=== PATIENT | female | born 1990 | race Caucasian/White ===

== ENCOUNTER 2017-01-13 10:30 | Observation (INO) | payer BC ==
[~2017-01-13] VITALS: Ht 157.5 cm; Wt 82.6 kg
[~2017-01-13 10:30] MED LIST: HYDR-4100 PO; PARO20TA51 PO
[2017-01-13] MEDS ORDERED: TERBUTALINE SULFATE 1 MG/ML VIAL SUBCUT PRN (11:15)
[2017-01-13 11:53] LABS: BILIRUBIN,URINE NEGATIVE (NEGATIVE); BLOOD, URINE 2+ (NEGATIVE); CLARITY/URINE SL HAZY (CLEAR); COLOR,URINE YELLOW (YELLOW); GLUCOSE,URINE NEGATIVE (NEGATIVE); KETONES,URINE NEGATIVE (NEGATIVE); LEUKOCYTE ESTERASE ,URINE NEGATIVE (NEGATIVE); NITRITE, URINE NEGATIVE (NEGATIVE); PH,URINE 7.5 (5.0-8.0); PROTEIN URINE NEGATIVE (NEGATIVE); UROBILINOGEN,URINE 0.2 (0.2-1.0)
[2017-01-13 12:09] LABS: BACTERIA,URINE RARE /HPF (None Seen); MUCUS,URINE 1+ /LPF (None Seen); WBC,URINE 0-3 /HPF (0-3)
== END 2017-01-13 12:55 | disposition home or self-care (01) ==
LOC: SPU 10:30 → UNDOADMIN 10:39 → SPU 10:39 → EDSTATUS 12:30
PROVIDERS: ADMIT Specialist; ATTEND Specialist
DX: O26.853 Spotting complicating pregnancy, third trimester (principal); Z3A.38 38 weeks gestation of pregnancy
CPT/HCPCS: 81000; G0378; J3105

== ENCOUNTER 2017-01-14 19:25 | Observation (INO) | payer BC ==
[~2017-01-14] VITALS: Ht 152.4 cm; Wt 82.6 kg
[2017-01-14] MEDS ORDERED: TERBUTALINE SULFATE 1 MG/ML VIAL ONE (20:38)
== END 2017-01-14 22:19 | disposition home health service, planned readmission (86) ==
LOC: SPU 19:25
PROVIDERS: ADMIT Obstetrics & Gynecology; ATTEND Obstetrics & Gynecology
DX: O42.92 Full-term premature rupture of membranes, unspecified as to length of time between rupture and onset of labor (principal); O46.93 Antepartum hemorrhage, unspecified, third trimester; Z3A.38 38 weeks gestation of pregnancy
CPT/HCPCS: G0378; J3105

== ENCOUNTER 2017-01-15 09:40 | Observation (INO) | payer BC | END 2017-01-15 11:20 | disposition home or self-care (01) | LOC: SPU 09:40 | PROVIDERS: ADMIT Specialist; ATTEND Specialist | DX: O42.92 Full-term premature rupture of membranes, unspecified as to length of time between rupture and onset of labor (principal); Z3A.38 38 weeks gestation of pregnancy | CPT/HCPCS: 76815; G0378; 81002-TC ==

== ENCOUNTER 2017-01-16 03:48 | Inpatient (IN) | payer BC ==
[~2017-01-16] VITALS: Ht 152.4 cm; Wt 82.6 kg
[2017-01-16] MEDS ORDERED: LR 1,000 ML IV SCH (04:00)
[2017-01-16] MEDS ORDERED: CEFAZOLIN 2 GM IVPB PREMIX 50 ML IV ONE (04:00)
[2017-01-16 04:47] LABS: BILIRUBIN,URINE NEGATIVE (NEGATIVE); BLOOD, URINE 3+ (NEGATIVE); CLARITY/URINE SL CLOUDY (CLEAR); COLOR,URINE YELLOW (YELLOW); GLUCOSE,URINE NEGATIVE (NEGATIVE); KETONES,URINE NEGATIVE (NEGATIVE); LEUKOCYTE ESTERASE ,URINE NEGATIVE (NEGATIVE); NITRITE, URINE NEGATIVE (NEGATIVE); PROTEIN URINE NEGATIVE (NEGATIVE); UROBILINOGEN,URINE 0.2 (0.2-1.0)
[2017-01-16 04:51] VITALS: BP_SYST 92
[2017-01-16 04:54] LABS: BACTERIA,URINE FEW /HPF (None Seen); RBC,URINE 20-50 /HPF (0-3); WBC,URINE 0-3 /HPF (0-3)
[2017-01-16 04:56] LABS: BASOPHILS # (AUTO) 0.1 K/uL (0.0-0.2); BASOPHILS % (AUTO) 0.9 % (0.0-2.0); EOSINOPHILS # (AUTO) 0.3 K/uL (0.0-0.4); EOSINOPHILS % (AUTO) 2.9 % (0.0-4.0); HEMATOCRIT 36.3 % (36-48); HEMOGLOBIN 12.1 g/dL (12.0-16.0); LYMPHOCYTES % (AUTO) 20.7 % (20.5-51.5); MEAN CORPUSCULAR HEMOGLOBIN 29 pg (27-31); MEAN CORPUSCULAR HGB CONC 33 % (32-36); MEAN CORPUSCULAR VOLUME 86 fL (79.0-98.0); MONOCYTES # (AUTO) 0.5 K/uL (0.0-1.0); MONOCYTES % (AUTO) 4.9 % (1.7-9.3); NEUTROPHILS # (AUTO) 6.6 K/uL (1.8-7.7); NEUTROPHILS % (AUTO) 70.6 % (40.0-70.0); PLATELET COUNT (AUTO) 138 K/uL (130-430); RED BLOOD CELL COUNT(AUTO) 4.22 MIL/uL (4.2-6.2); RED CELL DISTRIBUTION WIDTH 14.3 % (9.0-15.0); WHITE BLOOD COUNT (AUTO) 9.5 K/uL (4.8-10.8)
[2017-01-16] MEDS ORDERED: FLU VACC QS 2017-18(36MOS+)/PF 0.5 ML/SYR SYRINGE I.M. PRN (05:15)
[2017-01-16] MEDS ORDERED: METOCLOPRAMIDE HCL 10 MG/2 ML VIAL IVP ONE (07:16)
[2017-01-16] MEDS ORDERED: fentaNYL CITRATE/PF 100 MCG/2 ML AMP IVP ONE (07:16)
[2017-01-16] MEDS ORDERED: DEXAMETHASONE SOD PHOSPHATE 4 MG/ML VIAL IVP ONE (07:16)
[2017-01-16] MEDS ORDERED: OXYTOCIN 10 UNIT/ML VIAL IV ONE (07:16)
[2017-01-16] MEDS ORDERED: MORPHINE SULFATE 10MG/10ML PF AMP EP ONE (07:16)
[2017-01-16] MEDS ORDERED: MEPERIDINE HCL/PF 100 MG/ML AMP IM PRN (08:45)
[2017-01-16] MEDS ORDERED: MEASLES,MUMPS&RUBELLA VACC/PF 12500 UNIT/0.5 ML VIAL SUBQ PRN (08:45)
[2017-01-16] MEDS ORDERED: ANUSOL 1 EA SUPP.RECT (PREPARATION H) RC PRN (08:45)
[2017-01-16] MEDS ORDERED: RHO(D) IMMUNE GLOBULIN/MALTOSE 1500 UNITS/1.3 ML (WINHRO) IM PRN (08:45)
[2017-01-16] MEDS ORDERED: BISACODYL 10 MG/SUPPOSITORY RC PRN (08:45)
[2017-01-16] MEDS ORDERED: LANOLIN 7 GM OINT. TP PRN (08:45)
[2017-01-16] MEDS ORDERED: OXYTOCIN/NORMAL SALINE 1,000 ML IV ONE (08:49)
[2017-01-16] MEDS ORDERED: DIPHENHYDRAMINE INJ 50 MG/ML VIAL IVP ONE (09:00)
[2017-01-16 09:06] VITALS: BP_SYST 106
[2017-01-16] MEDS: IBUPROFEN 600 MG TABLET PO SCH ×2 (12:00→18:00)
[2017-01-16] MEDS: CEFAZOLIN 1 GM IVPB PREMIX 50 ML IV SCH ×2 (14:00→20:00)
[2017-01-16] MEDS ORDERED: TEMAZEPAM 15 MG CAPSULE PO PRN (21:00)
[2017-01-17] MEDS: CEFAZOLIN 1 GM IVPB PREMIX 50 ML IV SCH (02:00)
[2017-01-17] MEDS: HYDROcodone/ACETAMIN 5-325 MG TAB (NORCO/ VICODIN) PO PRN ×4 (02:01→20:42)
[2017-01-17] MEDS: IBUPROFEN 600 MG TABLET PO SCH ×4 (02:01→18:07)
[2017-01-17] MEDS: SIMETHICONE 80 MG TAB.CHEW PO PRN (09:25)
[2017-01-17] MEDS: DOCUSATE SODIUM 100 MG CAPSULE PO PRN (09:26)
[2017-01-17] MEDS: SENNOSIDES/DOCUSATE SODIUM 1 TAB TABLET(SENOKOT-S) PO PRN (09:26)
[2017-01-18] MEDS: SIMETHICONE 80 MG TAB.CHEW PO PRN (01:08)
[2017-01-18] MEDS: HYDROcodone/ACETAMIN 5-325 MG TAB (NORCO/ VICODIN) PO PRN ×2 (01:08→06:50)
[2017-01-18] MEDS: SENNOSIDES/DOCUSATE SODIUM 1 TAB TABLET(SENOKOT-S) PO PRN (01:08)
[2017-01-18] MEDS: DOCUSATE SODIUM 100 MG CAPSULE PO PRN (01:09)
[2017-01-18] MEDS: IBUPROFEN 600 MG TABLET PO SCH ×2 (01:11→04:53)
[2017-01-18] MEDS ORDERED: DIPH-TET-PERTUS Vaccine 0.5 ML VIAL/Tdap (ADACEL) I.M. PRN (11:15)
== END 2017-01-18 11:40 | disposition home or self-care (01) | DRG 766 ==
LOC: SPU 03:48
PROVIDERS: ADMIT Specialist; ATTEND Specialist
PROC: 10D00Z1 Extraction of Products of Conception, Low, Open Approach (ICD-10-PCS; principal; 2017-01-16 07:30)
DX: O34.211 Maternal care for low transverse scar from previous cesarean delivery (principal); N73.6 Female pelvic peritoneal adhesions (postinfective); O47.9 False labor, unspecified; O99.89 Other specified diseases and conditions complicating pregnancy, childbirth and the puerperium; Z37.0 Single live birth; Z3A.00 Weeks of gestation of pregnancy not specified
CPT/HCPCS: 36415; 81000-TC; 85025; 86592; 86886; 86900; 86901; 90715; 94760; J0690; J1100; J2274; J2590; J2765; J3010; J7120; Q2037